=== PATIENT | female | born 1970 | race Two or more races ===

== ENCOUNTER 2016-05-12 11:49 | Day surgery (SDC) | payer MEDICARE, MEDICAID ==
[~2016-05-12] VITALS: Ht 154.9 cm; Wt 68.2 kg
[2016-05-12 12:47] LABS: BASOPHILS 0.2 % (0.0-2.0); HEMATOCRIT 37.1 % (36.0-48.0); HEMOGLOBIN 12.9 g/dL (12-16); IMMATURE GRANULOCYTES 0.3 % (0-5); LYMPHOCYTES 33.2 % (15-50); MCH 33.2 pg (26.0-34.0); MCHC 34.8 g/dL (31.0-37.0); MCV 95.6 fL (80.0-100.0); MEAN PLATELET VOLUME 9.7 fL (7.4-10.4); NEUTROPHILS 58.3 % (40-80); PLATELET COUNT 265 10x3/uL (130-400); RBC 3.88 10x6/uL (4.00-5.40); RDW 12.5 % (11.5-14.5); WBC 5.9 10x3/uL (4.8-10.8)
[2016-05-12 13:01] LABS: CALC OSMOLALITY 278 mosm/kg (275-300); CALCIUM 8.9 mg/dL (8.5-10.1); CARBON DIOXIDE 27.7 mmol/L (21.0-32.0); CHLORIDE - SERUM 103 mmol/L (98-107); CREATININE - SERUM 0.6 mg/dL (0.6-1.3); GLUCOSE 112 mg/dL (74-106); POTASSIUM - SERUM 3.6 mmol/L (3.5-5.1); SODIUM 139 mmol/L (136-145); UREA NITROGEN 12 mg/dL (7-18); eGFR NON AFRICAN AMERICAN > 90 mL/min (90-120)
[2016-05-12] MEDS ORDERED: ZANAFLEX4 MG PO (13:22)
[2016-05-12] MEDS ORDERED: TYLENOL #4 W/CO1 TAB PO (13:23)
[2016-05-12] MEDS ORDERED: SOMA350 MG PO (13:23)
[2016-05-12] MEDS ORDERED: HYDROCODONE-APA1 TAB PO (13:23)
[2016-05-12] MEDS ORDERED: LISINOPRIL10 MG PO (13:24)
[2016-05-12] MEDS ORDERED: VICTOZA0.6 MG/0.1 SQ (13:24)
[2016-05-12] MEDS ORDERED: BUPROPION XL300 MG PO (13:25)
[2016-05-12] MEDS ORDERED: PAXIL CR37.5 MG PO (13:25)
[2016-05-12] MEDS ORDERED: DEXILANT60 MG PO (13:25)
[2016-05-12] MEDS ORDERED: GLUCOPHAGE1000 MG PO (13:25)
[2016-05-12] MEDS ORDERED: NEURONTIN 300300 MG PO (13:25)
[2016-05-12] MEDS ORDERED: TAMIFLU75 MG (13:26)
[2016-05-12] MEDS ORDERED: NIASPAN500 MG PO (13:26)
[2016-05-12] MEDS ORDERED: ALPHAGAN P15 ML EACH EYE (13:26)
[2016-05-12] MEDS ORDERED: ZOFRAN4 MG PO (13:27)
[2016-05-12 13:34] VITALS: BP 171/84; Ht 154.9 cm; Wt 68.2 kg
--- NOTE | 2016-05-12 16:45 | NUR ---
1600- UP OOB WITH MINIMAL ASSIST. VOIDED WITHOUT DIFFICULTY 1620- IV D/C'D, PT TOLERATED. CATHETER INTACT 1635- DISCHARGE INSTRUCTIONS COMPLETED AND SIGNED. PT VERBALIZED UNDERSTANDING 1640- D/C'D VIA WHEELCHAIR WITH FRIEND
--- NOTE | 2016-05-18 11:23 | OP ---
PATIENT NAME: GREGORIO ABRAMS MEDICAL RECORD: [id number] :68 LOCATION:D.OPS ADMISSION DATE: SURGEON: MATILDE العلي MD DATE OF OPERATION: 05/12/2016 PROCEDURE: This is an EGD with biopsy. BEHAVIORAL HEALTH RN: Matilde العلي MD. SCOPE: Olympus video gastroscope. MEDICATIONS: Per TIVA anesthesia. The patient received 150 mg of propofol IV, O2 of 4 liters, 30 mg of lidocaine IV push. INDICATION FOR THE PROCEDURE: Epigastric pain, dysphagia, gas and bloating, gastroesophageal reflux disease, nausea and vomiting. FINDINGS: Informed consent was given. The patient was made comfortable with the above medications. After reaching an adequate level of sedation by slow IV push, the patient was placed on her left side. The endoscope was then advanced under direct visualization through the posterior pharyngeal area and advanced to the distal esophagus. At the distal esophageal area, an ulceration was noted and biopsies were taken of the ulcers around. The patient also had erosive esophagitis. On entering the stomach, some inflammation was noted scattered throughout the stomach also seen at the antral area where Helicobacter pylori histopathology biopsy was obtained. The duodenal bulb to the second portion had only mild inflammation present. Biopsies, however, were taken looking for any evidence of eosinophilic gastroenteritis celiac sprue, ova and parasites. The scope was then withdrawn. IMPRESSION: 1. Distal esophageal ulcerations. Biopsy taken of the ulcers around. 2. Inflammation and erosions at the distal esophageal area, significant for erosive esophagitis. 3. Mild to moderate gastritis, biopsy taken at the antral area. 4. Mild duodenitis. PLAN: Continue Dexilant at 60 mg p.o. q. day and add famotidine at 20 mg p.o. q.h.s. Repeat EGD in 8 weeks to document healing of the esophageal ulcers. Caution with anti-inflammatory drugs please. The patient to follow reflux precautions stringently, both dietary and positional. No chocolate, tomato, citrus, caffeine, fatty foods, peppermint, not to eat late at night and sit up for a couple hours after meals. TRANSINT:[id number] Voice Confirmation ID: [id number] DOCUMENT ID: [id number] MATILDE العلي MD at 1123 CC: CONCHITA GERMAN MD [id number] DICTATION DATE: 05/12/16 1536 ESTHETICS INSTRUCTOR: 05/12/161955 [facility] 05/12/16 [address] [address] [place] [address]
== END 2016-05-12 16:40 | disposition home or self-care (01) ==
LOC: D.OPS 11:49
PROVIDERS: Anesthesiology
DX: K22.10 Ulcer of esophagus without bleeding (principal); K29.70 Gastritis, unspecified, without bleeding; K29.80 Duodenitis without bleeding; K21.9 Gastro-esophageal reflux disease without esophagitis

== ENCOUNTER 2017-03-06 09:05 | Day surgery (SDC) | payer MEDICARE, MEDICAID ==
[~2017-03-06] VITALS: Ht 154.9 cm; Wt 67.7 kg
[~2017-03-06 09:05] MED LIST: ALPHAGAN P15 ML EACH EYE; BUPROPION XL300 MG PO; DEXILANT60 MG PO; GLUCOPHAGE1000 MG PO; HYDROCODONE-APA1 TAB PO; LISINOPRIL10 MG PO; NEURONTIN 300300 MG PO; NIASPAN500 MG PO; PAXIL CR37.5 MG PO; SOMA350 MG PO; TAMIFLU75 MG; TYLENOL #4 W/CO1 TAB PO; VICTOZA0.6 MG/0.1 SQ; ZANAFLEX4 MG PO; ZOFRAN4 MG PO
[2017-03-06 10:02] LABS: HEMATOCRIT 37.4 % (36.0-48.0); HEMOGLOBIN 12.8 g/dL (12-16); MCH 32.8 pg (26.0-34.0); MCHC 34.2 g/dL (31.0-37.0); MCV 95.9 fL (80.0-100.0); MEAN PLATELET VOLUME 9.5 fL (7.4-10.4); RBC 3.9 10x6/uL (4.00-5.40); RDW 11.6 % (11.5-14.5); WBC 4.9 10x3/uL (4.8-10.8)
[2017-03-06 10:09] LABS: CALCIUM 8.6 mg/dL (8.5-10.1); CARBON DIOXIDE 33.4 mmol/L (21.0-32.0); CREATININE - SERUM 0.9 mg/dL (0.6-1.3); POTASSIUM - SERUM 3.4 mmol/L (3.5-5.1)
[2017-03-06 10:16] VITALS: BP 143/63; Ht 154.9 cm; Wt 67.7 kg
--- NOTE | 2017-03-06 12:13 | NUR ---
1145-RECD FROM GI LAB. ALERT. IV PATENT. DENIES PAIN. EXTRA BLANKET FOR COMFORT. VOISE HERE TO REPORT FINDINGS. 1200-PASSING FLATUS, FULL LIQUIDS SERVED.
[2017-03-06 12:14] LABS: INR 1.11 (0.85-1.17); PROTIME 13.9 SECONDS (11.6-15.0)
--- NOTE | 2017-03-06 13:15 | NUR ---
1215-IV D/C. VOIDS. 1230-DISCHARGE INSTRUCTIONS REVIEWED. 1240-FATHER HERE, DISCHARGED HOME VIA WHEELCHAIR TO PRIVATE AUTO.
--- NOTE | 2017-03-16 10:48 | OP ---
PATIENT NAME: GREGORIO ABRAMS MEDICAL RECORD: [id number] :68 LOCATION:[facility] ADMISSION DATE: SURGEON: BOB BRYSON DO DATE OF OPERATION: 03/06/2017 PROCEDURE: Colonoscopy. INDICATIONS FOR PROCEDURE: History of left lower quadrant abdominal pain and change in bowel habits as well as constipation for which the patient states has resolved. SCOPE: Olympus video pediatric colonoscope. MEDICATIONS: Propofol 420 mg IV per anesthesia. WITHDRAWAL TIME: 12 minutes. ESTIMATED BLOOD LOSS: None. COMPLICATIONS: None. FINDINGS: Informed consent was given. The patient was made comfortable with the above medication. After reaching an adequate level of sedation by slow IV push, the patient was placed on her left side. A digital rectal examination was performed and was normal. The endoscope was then advanced under direct visualization through the rectum to the terminal ileum. The scope was slowly withdrawn and mucosa was carefully examined. The prep quality was good. There were no polyps visualized on today examination. There were no diverticula or other abnormalities. Retroflexion was performed in the rectum with normal appearing rectal vault. The endoscope was withdrawn from the patient. The patient tolerated the procedure well and there were no complications. IMPRESSION: Normal colonoscopy to the terminal ileum. PLAN AND RECOMMENDATIONS: 1. Discharge home when recovery parameters are met. 2. Continue current diet. 3. Continue current medications. 4. Recall colonoscopy in 5 years based on family history of polyps and colon cancer. TRANSINT:[id number] Voice Confirmation ID: [id number] DOCUMENT ID: [id number] BOB BRYSON DO at 1048 CC: [id number] DICTATION DATE: 03/06/17 1141 MUD ANALYSIS WELL LOGGING CAPTAIN: 03/06/17 1249 [facility] 03/06/17 [place] [id number] [place] [id number]
== END 2017-03-06 12:40 | disposition home or self-care (01) ==
LOC: D.OPS 09:05
PROVIDERS: Anesthesiology; Internal Medicine Gastroenterology
DX: R19.4 Change in bowel habit (principal); R10.32 Left lower quadrant pain; F17.200 Nicotine dependence, unspecified, uncomplicated; I10 Essential (primary) hypertension; E11.9 Type 2 diabetes mellitus without complications; K21.9 Gastro-esophageal reflux disease without esophagitis; Z01.812 Encounter for preprocedural laboratory examination

== ENCOUNTER 2017-03-15 09:59 | Day surgery (SDC) | payer MEDICARE, MEDICAID ==
[~2017-03-15] VITALS: Ht 154.9 cm; Wt 70.0 kg
[2017-03-15 10:32] VITALS: BP 152/63; Ht 154.9 cm; Wt 70.0 kg
[2017-03-15 10:32] LABS: HEMOGLOBIN 13.6 g/dL (12-16); MCH 33.3 pg (26.0-34.0); MCHC 34.9 g/dL (31.0-37.0); MCV 95.6 fL (80.0-100.0); MEAN PLATELET VOLUME 9.2 fL (7.4-10.4); RBC 4.08 10x6/uL (4.00-5.40); RDW 11.6 % (11.5-14.5); WBC 7.1 10x3/uL (4.8-10.8)
[2017-03-15 10:46] LABS: CALCIUM 9.6 mg/dL (8.5-10.1); CARBON DIOXIDE 31.8 mmol/L (21.0-32.0); CREATININE - SERUM 0.9 mg/dL (0.6-1.3); POTASSIUM - SERUM 3.8 mmol/L (3.5-5.1)
--- NOTE | 2017-03-16 10:48 | OP ---
PATIENT NAME: GREGORIO ABRAMS MEDICAL RECORD: [id number] :68 LOCATION:[facility] ADMISSION DATE: SURGEON: BOB BRYSON DO DATE OF OPERATION: 03/15/2017 PROCEDURE: EGD. INDICATION FOR PROCEDURE: History of esophageal ulcerations. SCOPE: Olympus video gastroscope. MEDICATIONS: Propofol 230 mg IV per anesthesia. ESTIMATED BLOOD LOSS: None. COMPLICATIONS: None. FINDINGS: Informed consent was given. The patient was made comfortable with the above medication. After reaching an adequate level of sedation by slow IV push, the patient was placed on her left side. The endoscope was then advanced under direct visualization through the mouth to the second portion of the duodenum. The upper, middle, and lower thirds of the esophagus appeared normal. At the GE junction, there was mild evidence of LA class A reflux-induced esophagitis. There were no ulcerations present. The endoscope was advanced beyond the GE junction into the pylorus and retroflexed to view the cardia. There was a small sliding type hiatal hernia present with no associated ulcerations or other abnormalities. The fundus and body of the stomach appeared normal as well as the antrum and prepyloric region. The endoscope was advanced beyond the pylorus into the duodenum where the entire examined duodenum appeared normal. The endoscope was then withdrawn from the patient. The patient tolerated the procedure well and there were no complications. IMPRESSION: 1. Mild, LA class A reflux-induced esophagitis. 2. Small sliding hiatal hernia. PLAN AND RECOMMENDATIONS: 1. Discharge home when recovery parameters are met. 2. Continue current diet. 3. Continue current medications. 4. Repeat EGD as needed for symptoms. The reevaluation of the ulcers reveals that the distal ulcers have healed and the esophagus appears normal other than the mild reflux present. TRANSINT:[id number] Voice Confirmation ID: [id number] DOCUMENT ID: [id number] BOB BRYSON DO at 1048 CC: [id number] DICTATION DATE: 03/15/17 1239 SOIL SURVEYOR: 03/15/17 1419 [facility] 03/15/17 [place] [address]
== END 2017-03-15 13:30 | disposition home or self-care (01) ==
LOC: D.OPS 09:59
PROVIDERS: Internal Medicine Gastroenterology
DX: K21.0 Gastro-esophageal reflux disease with esophagitis (principal); K44.9 Diaphragmatic hernia without obstruction or gangrene; I10 Essential (primary) hypertension; E11.9 Type 2 diabetes mellitus without complications; E03.9 Hypothyroidism, unspecified; Z01.812 Encounter for preprocedural laboratory examination